=== PATIENT | female | born 2000 | race Caucasian/White ===

== ENCOUNTER → 2020-02-08 | Outpatient (CLI) | payer MEDICAID ==
[2020-02-08 12:20] LABS: HEMATOCRIT 34 % (35-52); HEMOGLOBIN 11.9 G/DL (11.5-16.0); MEAN CORPUSCULAR HEMOGLOBIN 31 PG (25-34); MEAN CORPUSCULAR HGB CONC 35 G/DL (32-36); MEAN CORPUSCULAR VOLUME 89 FL (80-99); MEAN PLATELET VOLUME 10.5 FL (7.4-10.4); NEUTROPHILS % (AUTO) 76 % (42-75); PLATELET COUNT 234 10^3/uL (130-400); WHITE BLOOD COUNT 10.4 10^3/uL (4.3-11.0)
[2020-02-08 12:21] LABS: BASOPHILS % (AUTO) 0 % (0-10); EOSINOPHILS % (AUTO) 0 % (0-10); LYMPHOCYTES % (AUTO) 19 % (12-44); MONOCYTES # (AUTO) 0.5 X 10^3 (0.0-1.0); MONOCYTES % (AUTO) 5 % (0-12); NEUTROPHILS # (AUTO) 7.9 X 10^3 (1.8-7.8)
== END ==
LOC: LAB FS 11:38
PROVIDERS: ATTEND Family Medicine
DX: Z34.01 Encounter for supervision of normal first pregnancy, first trimester (principal); Z34.00 Encounter for supervision of normal first pregnancy, unspecified trimester
CPT/HCPCS: 36415; 80055; 84443; 86703; 86762; 87088

== ENCOUNTER → 2020-02-29 | Outpatient (CLI) | payer MEDICAID | LOC: LAB FS 10:51 | PROVIDERS: ATTEND Family Medicine | DX: O03.9 Complete or unspecified spontaneous abortion without complication (principal) | CPT/HCPCS: 36415; 84702 ==

== ENCOUNTER → 2020-03-07 | Outpatient (CLI) | payer MEDICAID | LOC: LAB FS 10:11 | PROVIDERS: ATTEND Family Medicine | DX: O03.9 Complete or unspecified spontaneous abortion without complication (principal) | CPT/HCPCS: 36415; 84702 ==

== ENCOUNTER → 2020-08-19 | Outpatient (CLI) | payer MEDICAID | LOC: FSOP 15:06 | PROVIDERS: ATTEND Family Medicine | DX: Z34.01 Encounter for supervision of normal first pregnancy, first trimester (principal); Z3A.00 Weeks of gestation of pregnancy not specified | CPT/HCPCS: 36415; 87491; 87591 ==

== ENCOUNTER → 2020-10-17 | Outpatient (CLI) | payer MEDICAID ==
--- NOTE | 2020-10-17 14:12 | Diagnostic Imaging Report ---
INDICATION: survey TECHNIQUE: Multiple real-time grayscale images were obtained over the gravid uterus. COMPARISON: None FINDINGS: Gómez viable IUP is in cephalic position. The placenta is anterior with no abruption or previa. Cervix is measuring at about 2.6 cm. Amniotic fluid volume appeared within normal limits. The heart rate 144 bpm. No pathological finding at the anatomical survey is revealed however the lie results in suboptimal interrogation of the facial structures as well as ventricular outflow tracts. The biometrical measurements correlate with an average age of 20 weeks 5 days, sonographic date of delivery 03/01/2021, the LMP percentile is 46%. Biometrical measurements are as follows: Biparietal 5.00 cm, age 21 weeks 1 days. Head circumference 17.97 cm, age 20 weeks 3 days. Abdominal circumference 15.25 cm, age 20 weeks 4 days. Femur length 3.31 cm, age 20 weeks 3 days. Sonographic estimate age: 20 weeks 5 days. Sonographic estimated date of delivery: 03/01/2021. Estimated Weight: 354 gm (+/- 52 gm). LMP percentile: 46%. heart rate: 144 beats per minute. number: 1 of 1. IMPRESSION: Gómez viable IUP with no pathological finding demonstrated measuring 20 week 5 days. The nondilated cervix measures such short at 2.6 cm but this measurement may be artifactually diminished. Dictated by: Dictated on workstation # [id number]
== END ==
LOC: RAD FS 12:50
PROVIDERS: ATTEND Family Medicine
DX: Z34.02 Encounter for supervision of normal first pregnancy, second trimester (principal); Z3A.20 20 weeks gestation of pregnancy
CPT/HCPCS: 76805

== ENCOUNTER 2020-10-30 12:09 | Outpatient (CLI) | payer MEDICAID ==
[~2020-10-30] VITALS: Ht 154 cm; Wt 59.0 kg
[2020-10-30 12:26] VITALS: BP 102/59
[2020-10-30 12:29] VITALS: BP 102/59
[2020-10-30] MEDS ORDERED: FLUO10CA29 PO (12:30)
[2020-10-30] MEDS ORDERED: PREN-37 PO (12:30)
[2020-10-30 13:05] VITALS: BP 102/59
--- NOTE | 2020-10-31 07:59 | Physician Query-Final Dx ---
REY OGLESBY 10/31/20 0759: Clinic Account Progress/Dx Physician Query: Please give diagnosis Please include # weeks gestation Date of Service Oct 30, 2020 at 12:09 ZAHRAA GUTIERREZ MD 10/31/20 0831: Clinic Account Progress/Dx DIAGNOSIS: Diagnosis 22 weeks gestation with false labor REY OGLESBY Oct 31, 2020 07:59 ZAHRAA GUTIERREZ MD Oct 31, 2020 08:31
== END 2020-10-30 13:05 | disposition home or self-care (01) ==
LOC: WSo 12:09 → LDRP 12:10 → WSo 13:05
PROVIDERS: ATTEND Obstetrics & Gynecology
DX: O47.02 False labor before 37 completed weeks of gestation, second trimester (principal); O26.892 Other specified pregnancy related conditions, second trimester; R10.9 Unspecified abdominal pain; Z3A.22 22 weeks gestation of pregnancy
CPT/HCPCS: 99213

== ENCOUNTER → 2020-11-05 | Outpatient (CLI) | payer MEDICAID ==
[~2020-11-05] MED LIST: FLUO10CA29 PO; PREN-37 PO
== END ==
LOC: LABNPT 14:51
PROVIDERS: ATTEND Family Medicine
DX: N89.8 Other specified noninflammatory disorders of vagina (principal); R39.89 Other symptoms and signs involving the genitourinary system
CPT/HCPCS: 87088; 87210

== ENCOUNTER → 2020-11-07 | Outpatient (CLI) | payer MEDICAID ==
--- NOTE | 2020-11-07 12:33 | Diagnostic Imaging Report ---
INDICATION: Follow-up cervical length TECHNIQUE: Multiple real-time grayscale images were obtained over the gravid uterus. COMPARISON: ultrasound from 10/17/2020 FINDINGS: The cervix was measured on transvaginal imaging and measures 4.7 cm. Fetus is in cephalic presentation. The placenta is located along the anterior uterus, and has normal echogenicity and thickness for gestational age. There are no calcifications within the placenta. The amount of amniotic fluid appears appropriate. Limited anatomy assessment was performed and the following structures are visualized and normal: Four-chamber heart, left ventricular outflow tract, right ventricular outflow tract and profile. heart rate: 155 beats per minute. number: 1 of 1. IMPRESSION: 1. Cervix measures 4.7 cm in length by transvaginal imaging. Trace fluid within the endocervical canal with the internal cervical os appearing closed. 2. The few anatomy structures not seen on prior anatomy survey are seen on today's exam and normal. Dictated by: Dictated on workstation # [id number]
== END ==
LOC: RAD FS 08:52
PROVIDERS: ATTEND Family Medicine
DX: O26.879 Cervical shortening, unspecified trimester (principal); Z3A.00 Weeks of gestation of pregnancy not specified
CPT/HCPCS: 76816

== ENCOUNTER → 2020-12-17 | Outpatient (CLI) | payer MEDICAID ==
[2020-12-17 11:18] LABS: HEMATOCRIT 32 % (35-52); HEMOGLOBIN 10.9 g/dL (11.5-16.0); MEAN CORPUSCULAR HEMOGLOBIN 33 pg (25-34); MEAN CORPUSCULAR HGB CONC 34 g/dL (32-36); MEAN CORPUSCULAR VOLUME 97 fL (80-99); PLATELET COUNT 265 10^3/uL (130-400)
[2020-12-17 11:19] LABS: MEAN PLATELET VOLUME 10.4 fL (9.0-12.2)
== END ==
LOC: LAB FS 10:03
PROVIDERS: ATTEND Registered Nurse Emergency
DX: Z34.01 Encounter for supervision of normal first pregnancy, first trimester (principal)
CPT/HCPCS: 36415; 82950; 85027; 86780; 86850

== ENCOUNTER 2021-02-07 13:00 | Outpatient (CLI) | payer MEDICAID ==
[~2021-02-07] VITALS: Ht 154.9 cm; Wt 67.7 kg
[2021-02-07 13:06] VITALS: BP 109/60
[2021-02-07 13:07] VITALS: BP 109/60
[2021-02-07] MEDS ORDERED: AMPICILLIN FOR IV USE 2,000 MG in NS (IVPB) 50 ML IV ONE (13:49)
[2021-02-07] MEDS ORDERED: D5 LR IV SOLUTION 1,000 ML IV ONE ×2 (14:00)
[2021-02-07] MEDS ORDERED: AMPICILLIN 2,000 MG/14.8 ML (IV USE) ONE (14:10)
[2021-02-07] MEDS ORDERED: WATER (STERILE) FOR INJECTION 20 ML ONE (14:10)
[2021-02-07 16:50] VITALS: BP 109/60
[2021-02-07] MEDS ORDERED: AMPICILLIN FOR IV USE 1,000 MG in NS (IVPB) 50 ML IV SCH (18:00)
[2021-02-07] MEDS ORDERED: AMPICILLIN 1,000 MG/NS 50 ML IVPB IV SCH ×2 (18:00)
--- NOTE | 2021-02-10 08:15 | Physician Query-Final Dx ---
Clinic Account Progress/Dx Physician Query: Please give diagnosis Please include # weeks gestation Date of Service Feb 07, 2021 at 13:00 MENDEL,MarFeb 10, 2021 08:15
== END 2021-02-07 16:50 | disposition home or self-care (01) ==
LOC: WSo 13:00 → LDRP 13:00 → WSo 16:50
PROVIDERS: ATTEND Obstetrics & Gynecology
DX: O62.9 Abnormality of forces of labor, unspecified (principal); Z3A.00 Weeks of gestation of pregnancy not specified

== ENCOUNTER 2021-02-14 21:35 | Observation (INO) | payer MEDICAID ==
[~2021-02-14] VITALS: Ht 154.9 cm; Wt 70.4 kg
[2021-02-14 22:03] VITALS: BP 127/59
[2021-02-14 22:06] LABS: BILIRUBIN,URINE NEGATIVE (NEGATIVE); CLARITY,URINE CLEAR; COLOR,URINE YELLOW; GLUCOSE, URINE (UA) NEGATIVE (NEGATIVE); KETONES,URINE NEGATIVE (NEGATIVE); LEUKOCYTE ESTERASE ,URINE 1+ (NEGATIVE); NITRITE,URINE NEGATIVE (NEGATIVE); PROTEIN,URINE NEGATIVE (NEGATIVE)
[2021-02-14] MEDS ORDERED: ACETAMINOPHEN 500 MG TAB (TYLENOL) PO ONE (22:15)
[2021-02-14] MEDS ORDERED: CYCLOBENZAPRINE 10 MG (FLEXERIL) TAB PO SCH (22:15)
[2021-02-14] MEDS ORDERED: LACTATED RINGERS 1,000 ML IV SCH (22:15)
[2021-02-14] MEDS ORDERED: morphine INJ 4 MG/ML 1 ML (VIAL/SYRINGE) IVP ONE (22:15)
[2021-02-14 22:16] VITALS: BP 127/59
[2021-02-14 22:20] VITALS: BP 127/59
[2021-02-14] MEDS ORDERED: morphine INJ 10 MG/ML 1ML (SYR OR VIAL) ONE (22:25)
[2021-02-14] MEDS ORDERED: LACTATED RINGERS 1,000 ML IV ONE (22:26)
[2021-02-14] MEDS ORDERED: ACETAMINOPHEN 500 MG TAB (TYLENOL) ONE (22:26)
[2021-02-14] MEDS ORDERED: CYCLOBENZAPRINE 10 MG (FLEXERIL) TAB ONE (22:26)
[2021-02-14 22:42] LABS: AMORPHOUS SEDIMENT,UR RARE AMOR URATES /LPF; BACTERIA,URINE FEW /HPF; RBC,URINE RARE /HPF; SQUAMOUS EPITHELIAL CELL,UR 0-2 /HPF
[2021-02-14] MEDS ORDERED: cefTRIAXone 1,000 MG VIAL ONE (22:54)
[2021-02-14] MEDS ORDERED: cefTRIAXone 1 GM PRE-MIX 50 ML IV ONE (23:00)
[2021-02-14] MEDS ORDERED: NS (IVPB) 50 ML ONE (23:05)
[2021-02-14] MEDS ORDERED: D5 LR IV SOLUTION 1,000 ML IV ONE (23:48)
[2021-02-14] MEDS: D5 LR IV SOLUTION 1,000 ML IV SCH (23:49)
[2021-02-15] VITALS: BP 118/62
[2021-02-15] MEDS ORDERED: BUTORPHANOL INJ 2 MG/ML (STADOL) VIAL IV ONE ×4 (02:15→11:30)
[2021-02-15] MEDS ORDERED: BUTORPHANOL INJ 2 MG/ML (STADOL) VIAL ONE ×3 (02:17→09:27)
[2021-02-15 02:25] VITALS: BP 98/52
[2021-02-15 04:37] VITALS: BP 127/60
[2021-02-15 07:36] VITALS: BP 102/53
[2021-02-15] MEDS: D5 LR IV SOLUTION 1,000 ML IV SCH (07:38)
--- NOTE | 2021-02-15 10:47 | History & Physical-OB ---
OB - Chief Complaint & HPI Date/Time Date of Admission: Date of Admission: Feb 15, 2021 at 08:00 Date seen by a Provider: Feb 15, 2021 Time Seen by a Provider: 10:44 Chief Complaint/History OB-Reason for Admission/Chief: Contractions Hx : 2 Hx Para: 0 Expected Date of Delivery: Mar 03, 2021 Gestational Age in Weeks: 37 Gestational Age in Days: 4 Other reason for admission: CC: Painful Contractions Chelsea Villafuerte is a 21 yo who presents for contractions that have become more painful and frequent. She denies any vaginal bleeding or LOF. She is feeling good movements. She denies any AVITIA, CP, SOB, palpitations, visual disturbances. care is with Dr. Alvarado, and her has been uncomplicated Admission Nurse Assessment Rev: Yes History of Labs GBS negative Allergies and Home Medications Allergies Coded Allergies: No Known Drug Allergies (Unverified , 02/07/21) Patient Home Medication List Home Medication List Reviewed: Yes Acetaminophen (Tylenol) 325 Mg Capsule, 1,000 MG PO Q6H PRN for PAIN-MILD (1-4) Prescribed by: VIKY KAISER on 02/15/21 1523 Cephalexin (Cephalexin) 250 Mg Capsule, 500 MG PO QID Prescribed by: VIKY KAISER on 02/15/21 1522 Cyclobenzaprine HCl (Cyclobenzaprine HCl) 10 Mg Tablet, 10 MG PO Q8H PRN for PAIN-MODERATE (5-7) Prescribed by: VIKY KAISER on 02/15/21 1522 Fluoxetine HCl (Prozac) 10 Mg Capsule, 10 MG PO DAILY, (Reported) Entered as Reported by: CIERA COREAS on 10/30/20 1230 Last Action: Reviewed Vit/Iron Fumarate/FA ( Tablet) 1 Each Tablet, 1 EACH PO DAILY, (Reported) Entered as Reported by: CIERA COREAS on 10/30/20 1230 Last Action: Reviewed Zolpidem Tartrate (Ambien) 5 Mg Tablet, 5 MG PO HS PRN for INSOMNIA Prescribed by: VIKY KAISER on 02/15/21 1524 OB - History Hx of Present Care: Yes Ultrasounds: Normal mid trimester US Obstetrical Complications: None Medical Complications: None, Psychiatric Information Induced Hypertension: No Maternal Gestational Diabetes: No Hemorrhage: No Obstetrical History Hx : 2 Hx Para: 0 Hx Total # of Abortions (Spona: 1 Patient Past Medical History Anxiety Social History/Family History Alcohol Use: Denies Use Recreational Drug Use: No 2nd Hand Smoke Exposure: No OB - Admission Exam Physical Exam Vitals: Vital Signs VS - Last 72 Hours, by Label 02/14/21 02/14/21 02/14/21 02/15/21 22:03 22:16 22:20 00:00 Temp 37.2 37.2 37.2 36.6 Pulse 105 105 105 96 Resp 20 20 20 20 B/P (MAP) 127/59 (81) 118/62 (80) Pulse Ox 99 99 99 O2 Delivery Room Air Room Air Room Air 02/15/21 02/15/21 02/15/21 02/15/21 02:25 04:37 07:36 11:37 Temp 36.9 36.5 36.8 37.1 Pulse 78 75 115 Resp 20 20 20 B/P (MAP) 98/52 (67) 127/60 (82) 102/53 (69) Pulse Ox 99 O2 Delivery Room Air Room Air Room Air 02/15/21 13:37 Temp 37.1 Pulse 97 Resp 20 B/P (MAP) 104/61 (75) Pulse Ox 98 O2 Delivery Room Air HEENT: EOMI Heart: Other (normal rate and peripheral perfusion) Abdomen: Other (No CVA tenderness) Extremities: Normal Cervical Dilatation: 3cm Effacement: 75% Station: -1 Membranes: Intact Heart Rate: 130's Accelerations: Accelerations Present Decelerations: No Decelerations Short Term Variability: Present Drip Molder Variability: Average (6-25) Contractions on Admission: 6-10 Minutes Apart Gao Scoring Tool (Modified) Dilation (cm): 3-4cm (2) Effacement (%): 80-100% (3) Descent/Station: -1,0 (2) Labs Laboratory Tests Test 02/14/21 21:55 Range/Units Urine Color YELLOW Urine Clarity CLEAR Urine pH 6.0 5-9 Urine Specific [place] 1.010 L 1.016-1.022 Urine Protein NEGATIVE NEGATIVE Urine Glucose (UA) NEGATIVE NEGATIVE Urine Ketones NEGATIVE NEGATIVE Urine Nitrite NEGATIVE NEGATIVE Urine Bilirubin NEGATIVE NEGATIVE Urine Urobilinogen 1.0 < = 1.0 MG/DL Urine Leukocyte Esterase 1+ H NEGATIVE Urine RBC (Auto) TRACE-I H NEGATIVE Urine RBC RARE /HPF Urine WBC 5-10 H /HPF Urine Squamous Epithelial Cells 0-2 /HPF Urine Crystals PRESENT H /LPF Urine Amorphous Sediment RARE SHIRA URATES H /LPF Urine Bacteria FEW H /HPF Urine Casts NONE /LPF Urine Mucus NEGATIVE /LPF Urine Culture Indicated YES OB - Assessment/Plan/Diagnosis Assessment Assessment: observation, other Admission Dx Painful Contractions Admission Status: Observation Reason for Inpatient Admission: - Painful contractions requiring IV narcotics for management - Latent labor without cervical change Plan Plan: Expectant Management Other Plan - Patient admitted for extended observation for > 12 hours - Received IV morphine 5mg x1 and Stadol 1-2 mg x4 doses during admission - received IV fluids - No cervical change during period of admission - FHT reactive - DEBBIE wnl at 11.7cm - UA positive for WBCs and few bacteria. Empiric treatment for acute cystitis initiated. Received IV Rocephin x1 and transitioned to PO Keflex - Discussed supportive management at home with rest, warm bath, Tylenol. Prescription provided for Flexeril, Keflex, Ambien - Discharged home with return precautions provided Discharge Diagnosis Diagnosis: Contractions VIKY KAISER MD Feb 15, 2021 10:47
[2021-02-15 11:37] LABS: BASOPHILS % (AUTO) 0 % (0-10); EOSINOPHILS # (AUTO) 0.1 10^3/uL (0.0-0.3); EOSINOPHILS % (AUTO) 0 % (0-10); HEMATOCRIT 35 % (35-52); HEMOGLOBIN 11.9 g/dL (11.5-16.0); LYMPHOCYTES # (AUTO) 2.5 10^3/uL (1.0-4.0); LYMPHOCYTES % (AUTO) 14 % (12-44); MEAN CORPUSCULAR HEMOGLOBIN 32 pg (25-34); MEAN CORPUSCULAR HGB CONC 34 g/dL (32-36); MEAN CORPUSCULAR VOLUME 96 fL (80-99); MEAN PLATELET VOLUME 11.4 fL (9.0-12.2); MONOCYTES # (AUTO) 0.9 10^3/uL (0.0-1.0); MONOCYTES % (AUTO) 5 % (0-12); NEUTROPHILS # (AUTO) 14.2 10^3/uL (1.8-7.8); NEUTROPHILS % (AUTO) 80 % (42-75); PLATELET COUNT 298 10^3/uL (130-400); WHITE BLOOD COUNT 17.8 10^3/uL (4.3-11.0)
[2021-02-15 11:55] LABS: BAND NEUTROPHILS 3 %; NEUTROPHILS % (MANUAL) 75 %
[2021-02-15 11:56] LABS: EOSINOPHILS % (MANUAL) 1 %; LYMPHOCYTES % (MANUAL) 15 %; MONOCYTES % (MANUAL) 4 %; RBC MORPH NORMAL; REACTIVE LYMPHOCYTES 2 %; TOXIC GRANULATION/VACUOLAZATIO 1+
[2021-02-15] MEDS ORDERED: CEPHALEXIN 250 MG (KEFLEX) CAP PO SCH (13:00)
[2021-02-15 13:37] VITALS: BP 104/61
[2021-02-15] MEDS ORDERED: CEPH250C PO (15:22)
[2021-02-15] MEDS ORDERED: CYCL10TA9 PO (15:22)
[2021-02-15] MEDS ORDERED: ACET325C7 PO (15:23)
[2021-02-15] MEDS ORDERED: ZOLP5TAB PO (15:23)
--- NOTE | 2021-02-15 15:28 | Discharge Inst-Simple/Standard ---
Discharge Inst-Standard Reconcile Patient Problems Problems Reviewed?: Yes Discharge Medications New, Converted or Re-Newed RX: Transmitted to Pharmacy Patient Instructions/Follow Up Plan of Care/Instructions/FU: Return for worsening and more frequent contractions, vaginal bleeding, loss of fluid per vagina, fever equal to or greater than 100.4, decreased movements, or other concerns Activity as Tolerated: Yes Discharge Diet: No Restrictions Return to The Hospital For: Worsening and more frequent contractions, vaginal bleeding, loss of fluid per vagina, fever equal to or greater than 100.4, decreased movements, or other concerns VIKY KAISER MD Feb 15, 2021 15:28
--- NOTE | 2021-02-15 20:15 | Short Stay Summary ---
Discharge Summary Hospital Course Was the Problem List Reviewed?: Yes Final Diagnosis: Latent Labor without cervical change Hospital Course Date of Admission: Feb 15, 2021 at 08:00 Admission Diagnosis : Family Physician/Provider: Elva Medina MD Date of Discharge: 02/15/21 Discharge Diagnosis: latent labor Hospital Course: Patient is a 21 yo who presented for painful contractions. On presentation, FHR was reactive. She was noted to have q3-8 minute contractions on Tocodynamometer. She received doses of IV morphine, IV stadol with minimal improvement in her pain. UA was notable for WBCs and a few bacteria and empiric abx treatment for acute cystitis was initiated. She received IV Rocephin, and was transitioned to PO Keflex. She received IV fluids. FHR remained reactive throughout period of observation in the hospital. DEBBIE was obtained and was 11.7cm. Patient was discharged home in stable medical condition given likely latent labor without cervical change and reassuring FHT pattern. Return precautions were provided Labs and Pending Lab Test: Laboratory Tests 02/14/21 21:55: Urine Color YELLOW, Urine Clarity CLEAR, Urine pH 6.0, Urine Specific [place] 1.010L, Urine Protein NEGATIVE, Urine Glucose (UA) NEGATIVE, Urine Ketones NEGATIVE, Urine Nitrite NEGATIVE, Urine Bilirubin NEGATIVE, Urine Urobilinogen 1.0, Urine Leukocyte Esterase 1+H, Urine RBC (Auto) TRACE-IH, Urine RBC RARE, Urine WBC 5-10H, Urine Squamous Epithelial Cells 0-2, Urine Crystals PRESENTH, Urine Amorphous Sediment RARE SHIRA URATESH, Urine Bacteria FEWH, Urine Casts NONE, Urine Mucus NEGATIVE, Urine Culture Indicated YES 02/14/21 22:35: White Blood Count 17.8H, Red Blood Count 3.69L, Hemoglobin 11.9, Hematocrit 35, Mean Corpuscular Volume 96, Mean Corpuscular Hemoglobin 32, Mean Corpuscular Hemoglobin Concent 34, Red Cell Distribution Width 12.0, Platelet Count 298, Mean Platelet Volume 11.4, Immature Granulocyte % (Auto) 1, Neutrophils (%) (Auto) 80H, Lymphocytes (%) (Auto) 14, Monocytes (%) (Auto) 5, Eosinophils (%) (Auto) 0, Basophils (%) (Auto) 0, Neutrophils # (Auto) 14.2H, Lymphocytes # (Auto) 2.5, Monocytes # (Auto) 0.9, Eosinophils # (Auto) 0.1, Basophils # (Auto) 0.0, Immature Granulocyte # (Auto) 0.1, Neutrophils % (Manual) 75, Lymphocytes % (Manual) 15, Monocytes % (Manual) 4, Eosinophils % (Manual) 1, Band Neutrophils 3, Reactive Lymphocytes 2, Toxic Granulation 1+, Blood Morphology Comment NORMAL, Syphilis Serology [Pending] Home Meds Active Tylenol (Acetaminophen) 325 Mg Capsule 1,000 Mg PO Q6H PRN 7 Days Ambien (Zolpidem Tartrate) 5 Mg Tablet 5 Mg PO HS PRN 7 Days Cyclobenzaprine HCl 10 Mg Tablet 10 Mg PO Q8H PRN 7 Days Cephalexin 250 Mg Capsule 500 Mg PO QID 7 Days Reported Prozac (Fluoxetine HCl) 10 Mg Capsule 10 Mg PO DAILY Tablet ( Vit/Iron Fumarate/FA) 1 Each Tablet 1 Each PO DAILY Assessment/Pt Instructions 21 yo with IUP at 37w5d in latent labor. No cervical change for >15 hour period of observation in triage. FHR reactive. Discharge Instructions Discharge Diet: No Restrictions Activity as Tolerated: Yes Discharge Physical Examination General Appearance: Alert, Oriented X3, Cooperative HEENT: Atraumatic, EOMI Respiratory: Other (symmetrich chest rise, normal effort) Cardiovascular: Regular Rate, Other (normal peripheral perfusion) Abdominal: No Tenderness Extremities: No Edema, No Tenderness/Swelling Skin: No Rashes, No Breakdown Neuro: Normal Gait, Normal Speech, Normal Tone, Sensation Intact Psych/Mental Status: Mental Status NL, Mood NL Allergies: Coded Allergies: No Known Drug Allergies (Unverified , 02/07/21) Discharge Summary Date of Admission Feb 15, 2021 at 08:00 Date of Discharge Feb 15, 2021 at 16:00 Discharge Date: Feb 15, 2021 Consults/Procedures Consulations None Discharge Diagnosis Latent Labor without cervical change VIKY KAISER MD Feb 15, 2021 20:03
== END 2021-02-15 15:12 | disposition home or self-care (01) ==
LOC: WSo 21:35 → LDRP 21:35 → UNDOADMOB 02-15 08:00 → WSo 02-15 08:00 → LDRP 02-15 08:00 → UNDODISOB 02-15 16:00 → EDSTATUS 02-18 17:58
PROVIDERS: ADMIT Obstetrics & Gynecology; ATTEND Obstetrics & Gynecology
DX: O47.1 False labor at or after 37 completed weeks of gestation (principal); Z3A.37 37 weeks gestation of pregnancy; Z79.2 Long term (current) use of antibiotics; Z79.899 Other long term (current) drug therapy
CPT/HCPCS: 36415; 81000; 85007; 85027; 86780; 86850; 86900; 86901; 87088; 96361; 96374; 96375; 96376; G0378

== ENCOUNTER 2021-02-15 19:25 | Inpatient (IN) | payer MEDICAID ==
[2021-02-14 19:40] VITALS: BP 105/70
[~2021-02-15] VITALS: Ht 154.9 cm; Wt 69.0 kg
[2021-02-15] VITALS (23 sets, daily range): BP systolic 96–126; BP diastolic 51–92
[~2021-02-15 19:25] MED LIST changes: +ACET325C7 PO; +CEPH250C PO; +CYCL10TA25 PO; +ZOLP5TAB PO
[2021-02-15] MEDS ORDERED: D5 LR IV SOLUTION 1,000 ML IV ONE (19:56)
[2021-02-15] MEDS ORDERED: fentaNYL 2 mcg/ml BUPIVA 0.125 0 ML ONE (19:56)
[2021-02-15] MEDS ORDERED: MINERAL OIL CONCENTRATE 99.9% 15 ML UDC TOP PRN (20:15)
[2021-02-15] MEDS: D5 LR IV SOLUTION 1,000 ML IV SCH ×2 (20:15→20:37)
[2021-02-15] MEDS ORDERED: fentaNYL INJ 250 MCG/5 ML AMP ONE (20:25)
[2021-02-15] MEDS ORDERED: fentaNYL INJ 250 MCG/5 ML AMP IJ ONE (20:28)
[2021-02-15] MEDS ORDERED: ONDANSETRON 4 MG/2 ML (SDV) Z0FRAN IV PRN ×2 (20:30→21:00)
[2021-02-15] MEDS ORDERED: METOCLOPRAMIDE INJ 10 MG/2 ML (REGLAN) IV PRN ×2 (20:30→21:00)
[2021-02-15] MEDS ORDERED: diphenhydrAMINE 50 MG/ML INJ (BENADRYL) IV PRN (20:30)
[2021-02-15] MEDS ORDERED: NALOXONE 0.4 MG/ML 1 ML (NARCAN) VIAL IM PRN (20:30)
[2021-02-15] MEDS ORDERED: LACTATED RINGERS 1,000 ML IV ONE ×2 (20:30→21:00)
[2021-02-15] MEDS ORDERED: NALOXONE 0.4 MG/ML 1 ML (NARCAN) VIAL IV PRN ×3 (20:30→21:00)
--- NOTE | 2021-02-15 20:35 | History & Physical-OB ---
OB - Chief Complaint & HPI Date/Time Date of Admission: Date of Admission: Feb 15, 2021 at 19:25 Date seen by a Provider: Feb 15, 2021 Time Seen by a Provider: 19:30 Chief Complaint/History OB-Reason for Admission/Chief: Onset of Labor Hx : 2 Hx Para: 0 Expected Date of Delivery: Mar 03, 2021 Gestational Age in Weeks: 37 Gestational Age in Days: 5 History of Labs Rh negative GBS negative Rubella Immune Syphilis Ab non-reactive 1hr GCt wnl (110) HIV non-reactive Allergies and Home Medications Allergies Coded Allergies: No Known Drug Allergies (Unverified , 02/07/21) Patient Home Medication List Home Medication List Reviewed: Yes Acetaminophen (Tylenol) 325 Mg Capsule, 1,000 MG PO Q6H PRN for PAIN-MILD (1-4) Prescribed by: VIKY KAISER on 02/15/21 1523 Cephalexin (Cephalexin) 250 Mg Capsule, 500 MG PO QID Prescribed by: VIKY KAISER on 02/15/21 1522 Cyclobenzaprine HCl (Cyclobenzaprine HCl) 10 Mg Tablet, 10 MG PO Q8H PRN for PAIN-MODERATE (5-7) Prescribed by: VIKY KAISER on 02/15/21 1522 Fluoxetine HCl (Prozac) 10 Mg Capsule, 10 MG PO DAILY, (Reported) Entered as Reported by: CIERA COREAS on 10/30/20 1230 Vit/Iron Fumarate/FA ( Tablet) 1 Each Tablet, 1 EACH PO DAILY, (Reported) Entered as Reported by: CIERA COREAS on 10/30/20 1230 Zolpidem Tartrate (Ambien) 5 Mg Tablet, 5 MG PO HS PRN for INSOMNIA Prescribed by: VIKY KAISER on 02/15/21 1524 OB - History Hx of Present Care: Yes Ultrasounds: Normal mid trimester US Obstetrical Complications: None Medical Complications: None, Psychiatric (Hx of anxiety) Information Induced Hypertension: No Maternal Gestational Diabetes: No Hemorrhage: No Obstetrical History Hx : 2 Hx Para: 0 Hx # Term Pregnancies: 0 Hx # Pregnancies: 0 Number of Living Children: 0 Hx Total # of Abortions (Spona: 1 Patient Past Medical History Hx of anxiety Social History/Family History Alcohol Use: Denies Use Recreational Drug Use: No Smoking Cessation: Former smoker 2nd Hand Smoke Exposure: No OB - Admission Exam Physical Exam Heart: Other (normal heart rate and peripheral perfusion) Lungs: Equal (symmetric chest rise, normal effort) Abdomen: Non tender Extremities: Normal Cervical Dilatation: 8cm Effacement: 75% Station: Other (bulging amniotic sac) Membranes: Intact Heart Rate: 140's Accelerations: Accelerations Present Decelerations: No Decelerations Short Term Variability: Present Ways Operator Variability: Average (6-25) Contractions on Admission: < 5 Minutes Apart Date/Time Contractions Began;: 02/14/21 Frequency of Contractions: q 3 min OB - Assessment/Plan/Diagnosis Assessment Assessment: active labor Admission Dx Term Labor Admission Status: Inpatient Order (span 2 midnights) Reason for Inpatient Admission: Term Labor Plan Plan: Expectant Management Problems: (1) Active labor at term Assessment & Plan: Expectant management IV fluids NPO except ice chips cEFM/Trumann epidural on patient request VIKY KAISER MD Feb 15, 2021 20:35
[2021-02-15] MEDS ORDERED: fentaNYL INJ 100 MCG/2 ML AMP INJ ONE (21:00)
[2021-02-15] MEDS ORDERED: diphenhydrAMINE 50 MG/ML INJ (BENADRYL) IJ PRN (21:00)
--- NOTE | 2021-02-15 21:00 | Labor Progress Note ---
Labor Progress Note Labor Progress Note Date Seen by Provider: Feb 15, 2021 Time Seen by Provider: 20:56 Subjective: Pt denies complaints. Objective: (Can we insert 24 hour vitals here?) Cervical exam: [/-1] Consistency: [soft] Position: [anterior] Presentation: [cephalic] heart tones: 145beats per minute, moderate variability, reactive Tocometer: ctx q 3 min Assessment/Plan: Chelsea Villafuerte is a (21 /Para 2 / 0,Gestational Age (wks) here for labor. CEFM/TOCO Anesthesia: s/p spinal anesthesia AROM performed with clear fluid return Anticipate vaginal delivery. VIKY KAISER MD Feb 15, 2021 21:00
[2021-02-15] MEDS: fentaNYL 2 mcg/ml BUPIVA 0.125 100 ML IV SCH (22:30)
[2021-02-16] VITALS (37 sets, daily range): BP systolic 97–142; BP diastolic 51–79
[2021-02-16] MEDS ORDERED: OXYTOCIN PRE-MIX DRIP 500 ML IV ONE (01:16)
[2021-02-16] MEDS: D5 LR IV SOLUTION 1,000 ML IV SCH (01:30)
--- NOTE | 2021-02-16 01:42 | Labor Progress Note ---
Labor Progress Note Labor Progress Note Date Seen by Provider: Feb 16, 2021 Time Seen by Provider: 01:28 Subjective: Pt denies complaints. Objective: Vital Signs 02/15/21 02/15/21 20:36 20:55 Temp 37.19817 Pulse 87 Resp 16 B/P (MAP) 96/51 (66) Pulse Ox 97 O2 Delivery Room Air Cervical exam: 9+/90/0 Presentation: cephalic heart tones: 150 beats per minute, mod negrita variability, + accels. occassional variable decels Tocometer: ctx q 3 min Assessment/Plan: Chelsea Villafuerte is a (21 /Para 2 / 0,Gestational Age (wks)37 here for labor. CEFM/TOCO Pitocin briefly started for augmentation but discontinued due to sustained FHR deceleration to 60s x3 min resolved with discontinuation of pitocin and repositioning Anesthesia: s/p spinal. Now has epidural anesthesia placed Continue expectant management Anticipate vaginal delivery. Vitals - Labs Vital Signs - I&O Vital Signs Date Time Temp Pulse Resp B/P (MAP) Pulse Ox O2 Delivery O2 Flow Rate FiO2 02/15/21 20:55 87 16 96/51 (66) 97 Room Air 02/15/21 20:45 77 18 101/53 (69) 96 Room Air 02/15/21 20:40 84 16 100/52 (68) 99 Room Air 02/15/21 20:36 37.09745 02/15/21 20:10 78 20 126/62 (83) 100 Room Air 02/15/21 19:55 85 20 105/70 (82) 99 Room Air 02/15/21 19:40 37.3 85 20 105/70 (82) 99 Room Air VIKY KAISER MD Feb 16, 2021 01:42
[2021-02-16] MEDS: fentaNYL 2 mcg/ml BUPIVA 0.125 100 ML IV SCH (06:35)
[2021-02-16] MEDS ORDERED: MEPIVACAINE (CARBOCAINE) 2% 50 ML VIAL ONE (07:04)
[2021-02-16] MEDS ORDERED: NALOXONE 0.4 MG/ML 1 ML (NARCAN) VIAL IV PRN (07:30)
[2021-02-16] MEDS ORDERED: CALCIUM CARBONATE 500 MG (TUMS) TAB.CHEW PO PRN (07:30)
[2021-02-16] MEDS ORDERED: ONDANSETRON 4 MG (ZOFRAN) ORAL DISSOLVE TAB PO PRN (07:30)
[2021-02-16] MEDS ORDERED: DIBUCAINE 1% OINTMENT 30 GM TUBE TOP PRN (07:30)
[2021-02-16] MEDS ORDERED: WITCH HAZEL(TUCKS) 40 EA JAR TOP PRN (07:30)
[2021-02-16] MEDS ORDERED: MEASLES,MUMPS,RUBELLA 1 EA INJ SQ ONE (07:30)
--- NOTE | 2021-02-16 07:40 | OB Labor & Delivery Record ---
Vag Delivery Note Vag Delivery Note Date of Delivery: 02/16/21 Preoperative Diagnosis: Chelsea Villafuerte is a (21 /Para 2 / 0,Gestational Age (wks)37w5d with term spontaneous labor Postoperative Diagnosis: Same Surgeon: VIKY KAISER Bottle Washing Machine Operator: none Anesthesia: Epidural Delivery Type: Vacuum assisted vaginal delivery Findings: living femal infant, apgars 8/9 at 1 and 5 min respectively, weight 3190gm Lacerations: first degree perineal, left periurethral Intact placenta with 3 vessel cord. No nuchal cord, body cord or shoulder dystocia Cytotec 800 mcg placed for hemorrhage prophylaxis Estimated Blood Loss: 300ml Complications: None Condition: Stable Description of Procedure: The patient is a 21 year old female who presented with contractions. On presentation, cervical exam was 8/90/BBW. She was admitted for labor and informed consent was obtained. Her labor course was remarkable for AROM with clear fluid noted. She was managed expectantly. Pitocin was briefly administered, but was soon discontinued due to maternal tacchysystole and associated heart rate decelerations. She progressed to complete dilatation and began to push. She was then set up for delivery. She was able to push to +2 station. FHT was notable for recurrent deep FHR decelerations with contractions. At this point, recommendation was made to the patient for a vacuum assisted vaginal delivery to expedite delivery. Risks of vacuum-assisted delivery were discussed including but not limited to damage to baby including (intracranial) hemorrhage, damage to mother, failure of vacuum delivery. Patient verbalized understanding, and desired to proceed. position was again confirmed, and a [place] Vacuum was applied to the flexion point (3 cm anterior to the posterior fontanelle over the sagittal suture) of the head to assist in expedited delivery of given category II FHR tracing. Vacuum was pumped to the green zone, and with gentle traction, the i nfant was delivered atraumatically with 2 pulls over one contraction, and no pop-offs. Vacuum was then removed with delivery of the head. The infant's head was delivered atraumatically in the HINA position. The shoulders and remainder of the 's body were then delivered without difficulty. Upon delivery, the cord was doubly clamped and cut and the infant was placed on mother's chest. An intact placenta with 3-vessel cord delivered intact. Vigorous fundal massage was performed and the fundus was found to be firm. IV oxytocin was given. Examination of the vagina and perineum revealed a first degree perineal laceration repaired in the usual fashion with 3-0 vicryl suture. Following the repair, sponge, instrument and needle counts were correct. Mom and baby were both in stable condition in the labor suite. Vitals - Labs Vital Signs - I&O Vital Signs Date Time Temp Pulse Resp B/P (MAP) Pulse Ox O2 Delivery O2 Flow Rate FiO2 02/15/21 23:30 78 16 110/56 (74) 98 Room Air 02/15/21 23:15 75 16 121/56 (77) 97 Room Air 02/15/21 22:55 91 16 115/58 (77) 97 Room Air 02/15/21 22:50 70 18 109/51 (70) 97 Room Air 02/15/21 22:45 78 18 108/55 (72) 97 Room Air 02/15/21 22:40 91 16 115/58 (77) 97 Room Air 02/15/21 22:35 78 18 108/54 (72) 97 Room Air 02/15/21 22:30 74 18 107/52 (70) 97 Room Air 02/15/21 22:25 81 16 116/56 (76) Room Air 02/15/21 22:20 90 16 108/58 (75) 97 Room Air 02/15/21 22:15 94 16 107/59 (75) 97 Room Air 02/15/21 22:10 37.0 90 16 108/58 (75) Room Air 02/15/21 21:55 81 16 116/56 (76) Room Air 02/15/21 21:40 94 16 116/60 (78) Room Air 02/15/21 21:25 85 16 103/59 (74) Room Air 02/15/21 21:10 89 16 112/92 (99) 97 Room Air 02/15/21 20:55 87 16 96/51 (66) 97 Room Air 02/15/21 20:45 77 18 101/53 (69) 96 Room Air 02/15/21 20:40 84 16 100/52 (68) 99 Room Air 02/15/21 20:36 37.37367 02/15/21 20:10 78 20 126/62 (83) 100 Room Air 02/15/21 19:55 85 20 105/70 (82) 99 Room Air 02/15/21 19:40 37.3 85 20 105/70 (82) 99 Room Air VIKY KAISER MD Feb 16, 2021 07:40
[2021-02-16] MEDS: OXYTOCIN PRE-MIX DRIP 500 ML IV SCH (07:46)
[2021-02-16] MEDS ORDERED: FERROUS SULF 325 MG (IRON) TAB PO SCH (09:00)
[2021-02-16] MEDS: ACETAMINOPHEN 500 MG TAB (TYLENOL) PO PRN ×2 (14:32→22:50)
[2021-02-16] MEDS: IBUPROFEN 600 MG (MOTRIN) TAB PO SCH ×2 (14:32→19:57)
[2021-02-16] MEDS: BENZOCAINE/MENTHOL (DERMOPLAST) 56 ML CAN TP PRN (14:34)
[2021-02-16] MEDS: DOCUSATE SODIUM 100 MG (COLACE) CAP PO SCH ×2 (19:57→21:39)
[2021-02-17] MEDS: IBUPROFEN 600 MG (MOTRIN) TAB PO SCH ×2 (02:15→09:48)
[2021-02-17 04:38] VITALS: BP 107/57
[2021-02-17] MEDS: ACETAMINOPHEN 500 MG TAB (TYLENOL) PO PRN (05:49)
[2021-02-17] MEDS: BENZOCAINE/MENTHOL (DERMOPLAST) 56 ML CAN TP PRN (05:49)
[2021-02-17] MEDS: CATHETER FLUSH 10 ML SYR IV SCH ×3 (06:11→06:13)
[2021-02-17 06:24] LABS: BASOPHILS % (AUTO) 0 % (0-10); EOSINOPHILS # (AUTO) 0.1 10^3/uL (0.0-0.3); EOSINOPHILS % (AUTO) 1 % (0-10); HEMATOCRIT 27 % (35-52); HEMOGLOBIN 8.9 g/dL (11.5-16.0); LYMPHOCYTES # (AUTO) 3.2 10^3/uL (1.0-4.0); LYMPHOCYTES % (AUTO) 22 % (12-44); MEAN CORPUSCULAR HEMOGLOBIN 32 pg (25-34); MEAN CORPUSCULAR HGB CONC 33 g/dL (32-36); MEAN CORPUSCULAR VOLUME 97 fL (80-99); MEAN PLATELET VOLUME 11.4 fL (9.0-12.2); MONOCYTES # (AUTO) 0.9 10^3/uL (0.0-1.0); MONOCYTES % (AUTO) 6 % (0-12); NEUTROPHILS # (AUTO) 10.2 10^3/uL (1.8-7.8); NEUTROPHILS % (AUTO) 71 % (42-75); PLATELET COUNT 203 10^3/uL (130-400); WHITE BLOOD COUNT 14.4 10^3/uL (4.3-11.0)
[2021-02-17] MEDS ORDERED: PRENATAL VITAMIN 1 EA TAB PO SCH (07:00)
[2021-02-17] MEDS ORDERED: IBUP-844 PO ×2 (08:47→09:07)
--- NOTE | 2021-02-17 08:48 | Discharge Inst-Women's Service ---
Discharge Inst-Women's Serv Depart Medication/Instructions New, Converted or Re-Newed RX: Transmitted to Pharmacy Final Diagnosis 37 week gestation labor antepartum and acute blood loss anemia Problems Reviewed?: Yes Consults/Follow Up Additional Follow Up: Yes ([address] Medina) Activity Activity: Activity as Tolerated Driving Instructions: You May Drive NO SMOKING: NO SMOKING Nothing Inside Vagina: No Douching, No [place], No Tampons Diet Discharge Diet: No Restrictions Symptoms to Report to : Swelling Increased, Bleeding Excessive, Pain Increased, Fever Over 101 Degrees F, Vaginal Bleeding Increase, Cramps in Feet or Legs, Vaginal Discharge Foul For Any Problems or Questions: Contact Your Physician RUBY ORR DO Feb 17, 2021 08:48
[2021-02-17] MEDS ORDERED: DOCU100C37 PO (09:07)
[2021-02-17] MEDS ORDERED: ACET-93 PO (09:07)
[2021-02-17] MEDS ORDERED: FERR325T24 PO (09:07)
--- NOTE | 2021-02-17 09:09 | Postpartum Progress Note ---
Note Note Day # 1 Subjective: Patient is without complaints. Ambulating, voiding. Tolerating a regular diet without nausea or vomiting. Normal lochia. Pain is well controlled with oral pain medications. [] feeding. [] Objective: 02/16/21 02/17/21 23:40 04:38 Temp 36.8 36.8 Pulse 81 81 Resp 16 16 B/P (MAP) 107/57 (74) 107/57 (74) Pulse Ox 99 99 O2 Delivery Room Air Room Air Laboratory Tests Test 02/17/21 05:15 Range/Units White Blood Count 14.4 H 4.3-11.0 10^3/uL Red Blood Count 2.76 L 3.80-5.11 10^6/uL Hemoglobin 8.9 #L 11.5-16.0 g/dL Hematocrit 27 L 35-52 % Mean Corpuscular Volume 97 80-99 fL Mean Corpuscular Hemoglobin 32 25-34 pg Mean Corpuscular Hemoglobin Concent 33 32-36 g/dL Red Cell Distribution Width 12.3 10.0-14.5 % Platelet Count 203 130-400 10^3/uL Mean Platelet Volume 11.4 9.0-12.2 fL Immature Granulocyte % (Auto) 1 % Neutrophils (%) (Auto) 71 42-75 % Lymphocytes (%) (Auto) 22 12-44 % Monocytes (%) (Auto) 6 0-12 % Eosinophils (%) (Auto) 1 0-10 % Basophils (%) (Auto) 0 0-10 % Neutrophils # (Auto) 10.2 H 1.8-7.8 10^3/uL Lymphocytes # (Auto) 3.2 1.0-4.0 10^3/uL Monocytes # (Auto) 0.9 0.0-1.0 10^3/uL Eosinophils # (Auto) 0.1 0.0-0.3 10^3/uL Basophils # (Auto) 0.0 0.0-0.1 10^3/uL Immature Granulocyte # (Auto) 0.1 0.0-0.1 10^3/uL Physical Exam: General - Alert and oriented, no apparent distress Abdomen - Soft, appropriately tender to palpation, non-distended, fundus firm at umbilicus Extremities - no edema, negative Vinicio's bilaterally [] Assessment: [] post- day # [], status post [] vaginal delivery. Recovering well, hemodynamically stable [] Plan: Routine care. Encourage breast feeding. Encourage ambulation. Ferrous sulfate supplementation. Plan for discharge [] Vitals - Labs Vital Signs - I&O Vital Signs Date Time Temp Pulse Resp B/P (MAP) Pulse Ox O2 Delivery O2 Flow Rate FiO2 02/17/21 04:38 36.8 81 16 107/57 (74) 99 Room Air 02/16/21 23:40 36.8 81 16 107/57 (74) 99 Room Air 02/16/21 20:00 36.2 75 16 105/53 (70) 98 Room Air 02/16/21 14:34 36.4 80 18 105/53 (70) 99 Room Air I & O 02/17/21 07:00 Intake Total 500 ml Balance 500 ml Labs Laboratory Tests 02/17/21 05:15: White Blood Count 14.4H, Red Blood Count 2.76L, Hemoglobin 8.9#L, Hematocrit 27L , Mean Corpuscular Volume 97, Mean Corpuscular Hemoglobin 32, Mean Corpuscular Hemoglobin Concent 33, Red Cell Distribution Width 12.3, Platelet Count 203, Mean Platelet Volume 11.4, Immature Granulocyte % (Auto) 1, Neutrophils (%) (Auto) 71, Lymphocytes (%) (Auto) 22, Monocytes (%) (Auto) 6, Eosinophils (%) (Auto) 1, Basophils (%) (Auto) 0, Neutrophils # (Auto) 10.2H, Lymphocytes # (Auto) 3.2, Monocytes # (Auto) 0.9, Eosinophils # (Auto) 0.1, Basophils # (Auto) 0.0, Immature Granulocyte # (Auto) 0.1 RUBY ORR DO Feb 17, 2021 09:09
--- NOTE | 2021-02-17 09:32 | Anesthesia-Regional Post-Op ---
Regional Patient Condition Mental Status: Alert, Oriented x3 Circulation: Same as Pre-Op Headache: Absent Sensation: Full Recovery Motor Block: Absent Post Op Complications Complications None Follow Up Care/Instructions Patient Instructions None needed. Anesthesia/Patient Condition Patient is doing well, no complaints, stable vital signs, no apparent adverse anesthesia problems. No complications reported per nursing. [place] [facility] [place] Yes GO FRAZIER CRNA Feb 17, 2021 09:32
[2021-02-17 09:46] VITALS: BP 110/55
[2021-02-17] MEDS: DOCUSATE SODIUM 100 MG (COLACE) CAP PO SCH (09:48)
== END 2021-02-17 18:45 | disposition home or self-care (01) | DRG 807 ==
LOC: LDRP 19:25
PROVIDERS: ADMIT Obstetrics & Gynecology; ATTEND Obstetrics & Gynecology
PROC: 10D07Z6 Extraction of Products of Conception, Vacuum, Via Natural or Artificial Opening (ICD-10-PCS; principal; 2021-02-16)
PROC: 10907ZC Drainage of Amniotic Fluid, Therapeutic from Products of Conception, Via Natural or Artificial Opening (ICD-10-PCS; 2021-02-16)
PROC: 0HQ9XZZ Repair Perineum Skin, External Approach (ICD-10-PCS; 2021-02-16)
PROC: 0UQMXZZ Repair Vulva, External Approach (ICD-10-PCS; 2021-02-16)
DX: O70.0 First degree perineal laceration during delivery (principal); Z37.0 Single live birth; Z3A.37 37 weeks gestation of pregnancy; O71.82 Other specified trauma to perineum and vulva
CPT/HCPCS: 36415; 83033; 85025; 99212

== ENCOUNTER 2022-06-08 09:55 | Outpatient (CLI) | payer OTHER ==
[~2022-06-08] VITALS: Ht 155 cm; Wt 63.0 kg
[~2022-06-08 09:55] MED LIST changes: +ACET-93 PO; +DOCU100C37 PO; +FERR325T24 PO; +IBUP-844 PO
[2022-06-08 10:26] VITALS: BP 103/58
[2022-06-08 10:42] LABS: BILIRUBIN,URINE NEGATIVE (NEGATIVE); CLARITY,URINE CLEAR; COLOR,URINE YELLOW; GLUCOSE, URINE (UA) NEGATIVE (NEGATIVE); KETONES,URINE NEGATIVE (NEGATIVE); LEUKOCYTE ESTERASE ,URINE 2+ (NEGATIVE); NITRITE,URINE NEGATIVE (NEGATIVE); PH,URINE 7.5 (5-9); PROTEIN,URINE NEGATIVE (NEGATIVE)
[2022-06-08 10:57] LABS: AMORPHOUS SEDIMENT,UR LARGE AMOR PHOSPHATE /LPF; BACTERIA,URINE LARGE /HPF
--- NOTE | 2022-06-08 11:43 | Diagnostic Imaging Report ---
Exam: Ultrasound OB limited. Date: June 08, 2022. Indication: 22-year-old female, vaginal bleeding. Comparison: October 17, 2020. Findings: The cervical length is measured at 3.0 cm. The placenta is posterior without demonstrated previa. There is a twin living intrauterine . Fetus A is in cephalic presentation. heart rate of fetus A is 155 bpm. Baby B is in transverse presentation and has a heart rate of 161 bpm. There is a normal amniotic fluid index specifically measuring 17.1. There is no dedicated survey. There is no demonstrated retroplacental fluid collection. The maternal ovaries are not well demonstrated. Impression: 1. Twin living intrauterine . 2. No ultrasound evidence of placental abruption. 3. Normal amniotic fluid index. Dictated by: Dictated on workstation # [id number]
--- NOTE | 2022-06-09 09:57 | Physician Query-Final Dx ---
Clinic Account Progress/Dx Physician Query: Please give diagnosis Please include # weeks gestation Date of Service Jun 08, 2022 at 09:55 MENDELMarJun 09, 2022 09:57
== END 2022-06-08 12:38 | disposition home or self-care (01) ==
LOC: LDRP 09:55 → WSo 09:55
PROVIDERS: ATTEND Family Medicine
DX: O36.8120 Decreased fetal movements, second trimester, not applicable or unspecified (principal); Z3A.22 22 weeks gestation of pregnancy
CPT/HCPCS: 76815; 81000; 87088; 99213

== ENCOUNTER 2022-07-21 18:26 | Outpatient (CLI) | payer OTHER ==
[~2022-07-21] VITALS: Ht 154.9 cm; Wt 67.5 kg
[2022-07-21 18:30] VITALS: BP 116/62
[2022-07-21] MEDS ORDERED: BETAMETHASONE ACE/NA PHOS 6 MG/ML (CELESTONE SOLUSPAN) IM SCH (18:30)
[2022-07-21 18:40] VITALS: BP 115/63
[2022-07-21] MEDS ORDERED: NS IV 500 ML 500 ML IV SCH (18:45)
[2022-07-21 18:50] VITALS: BP 115/63
[2022-07-21 19:24] LABS: BILIRUBIN,URINE NEGATIVE (NEGATIVE); CLARITY,URINE SL CLOUDY; COLOR,URINE YELLOW; GLUCOSE, URINE (UA) NEGATIVE (NEGATIVE); KETONES,URINE NEGATIVE (NEGATIVE); LEUKOCYTE ESTERASE ,URINE NEGATIVE (NEGATIVE); NITRITE,URINE NEGATIVE (NEGATIVE); PH,URINE 6.5 (5-9); PROTEIN,URINE NEGATIVE (NEGATIVE)
[2022-07-21] MEDS ORDERED: D5 LR IV SOLUTION 1,000 ML IV ONE (19:37)
[2022-07-21 19:44] LABS: BACTERIA,URINE TRACE /HPF; SQUAMOUS EPITHELIAL CELL,UR 0-2 /HPF; WBC,URINE RARE /HPF
[2022-07-21] MEDS ORDERED: D5 LR IV SOLUTION 1,000 ML IV SCH (19:45)
[2022-07-21] MEDS ORDERED: TERBUTALINE INJ 1 MG/ML (BRETHINE) AMP ONE (19:57)
[2022-07-21] MEDS ORDERED: TERBUTALINE INJ 1 MG/ML (BRETHINE) AMP SC ONE (20:00)
[2022-07-21] MEDS ORDERED: NS IV 500 ML 500 ML IV ONE (20:00)
--- NOTE | 2022-07-22 08:53 | Physician Query-Final Dx ---
MENDEL,07/22/22 0853: Clinic Account Progress/Dx Physician Query: Please give diagnosis Please include # weeks gestation Date of Service Jul 21, 2022 at 18:26 MADELINE ROBERTSON DO 07/22/22 1012: Clinic Account Progress/Dx DIAGNOSIS: Diagnosis 31 week di/di twins Irregular contractions MENDEL,MarJul 22, 2022 08:53 MADELINE ROBERTSON DO Jul 22, 2022 10:12
== END 2022-07-21 21:10 | disposition home or self-care (01) ==
LOC: WSo 18:26 → LDRP 18:27 → WSo 21:10
PROVIDERS: ATTEND Obstetrics & Gynecology
DX: O62.9 Abnormality of forces of labor, unspecified (principal); Z3A.31 31 weeks gestation of pregnancy
CPT/HCPCS: 81000; 87088; 96360; 96361; 96372; 99213

== ENCOUNTER 2022-07-22 12:08 | Inpatient (IN) | payer OTHER, MEDICAID ==
[~2022-07-22] VITALS: Ht 154.9 cm; Wt 68.0 kg
[2022-07-22] MEDS ORDERED: D5 LR IV SOLUTION 1,000 ML IV SCH ×2 (12:30→12:45)
[2022-07-22 12:35] VITALS: BP 109/58
[2022-07-22] MEDS ORDERED: MAGNESIUM SULFATE DRIP 500 ML IV ONE (12:41)
[2022-07-22] MEDS ORDERED: D5 LR IV SOLUTION 1,000 ML IV ONE (12:41)
[2022-07-22] MEDS ORDERED: MAGNESIUM 4 GM/100 ML IVPB 100 ML IV ONE (12:41)
[2022-07-22] MEDS ORDERED: MAGNESIUM 4 GM/100 ML IVPB 100 ML IV SCH (12:45)
[2022-07-22] MEDS ORDERED: CALCIUM GLUC. 10% 4.65 MEQ/10 ML VIAL IV SCH (12:45)
[2022-07-22 13:15] VITALS: BP 102/57
[2022-07-22] MEDS ORDERED: MAGNESIUM SULFATE DRIP 500 ML IV SCH (13:15)
--- NOTE | 2022-07-22 13:23 | History & Physical-OB ---
OB - Chief Complaint & HPI Date/Time Date of Admission: Date of Admission: Jul 22, 2022 at 12:25 Date seen by a Provider: Jul 22, 2022 Time Seen by a Provider: 13:19 Chief Complaint/History OB-Reason for Admission/Chief: Onset of Labor Hx : 3 Hx Para: 1 Expected Date of Delivery: Sep 28, 2022 Gestational Age in Weeks: 30 Other reason for admission: Patient returns from last night after coming in for contractions. Reports they are worse this AM. Denies loss of fluid or vaginal bleeding. Was 1 cm last night Admission Nurse Assessment Rev: Yes Allergies and Home Medications Allergies Coded Allergies: No Known Drug Allergies (Unverified , 02/07/21) Patient Home Medication List Home Medication List Reviewed: Yes Vit/Iron Fumarate/FA ( Tablet) 1 Each Tablet, 1 EACH PO DAILY, (Reported) Entered as Reported by: CIERA COREAS on 10/30/20 1230 Discontinued Medications Acetaminophen (Acetaminophen) 500 Mg Tablet, 1,000 MG PO Q6HR PRN for PAIN-MILD (1-4) Discontinued Reason: No Longer Taking Prescribed by: RUBY ORR on 02/17/21906 Ferrous Sulfate (Ferosul) 325 Mg Tablet, 325 MG PO DAILY Discontinued Reason: No Longer Taking Prescribed by: RUBY ORR on 02/17/21 09 OB - History Hx of Present Care: Yes Ultrasounds: Normal mid trimester US Obstetrical Complications: None Medical Complications: None Obstetrical History Hx : 3 Hx Para: 1 Hx Total # of Abortions (Spona: 1 Patient Past Medical History Hx of anxiety Social History/Family History Alcohol Use: Denies Use Recreational Drug Use: No 2nd Hand Smoke Exposure: No OB - Admission Exam Physical Exam Vitals: Vital Signs 07/22/22 12:35 Temp 37.0 Pulse 99 Resp 20 B/P (MAP) 109/58 Pulse Ox 100 O2 Delivery Room Air HEENT: NCAT Heart: Rhythm Normal Lungs: Clear Abdomen: Gravid Extremities: Normal Reflexes: Normal Cervical Dilatation: 3cm Effacement: 75% Station: -3 Membranes: Intact Heart Rate: 130's Accelerations: Accelerations Present Decelerations: No Decelerations Short Term Variability: Present Jail Variability: Average (6-25) Contractions on Admission: >10 Minutes Apart Intensity: Mild OB - Assessment/Plan/Diagnosis Assessment Assessment: labor Admission Dx 22 yo @ 30.2 di/di twins labor GBS unknown Admission Status: Inpatient Order (span 2 midnights) Reason for Inpatient Admission: labor Plan Plan: Other Other Plan Spoke with Martín/ Dr. Clarke is taking transfer due to PTL. Starting patient on MgSO4 infusion. BMZ second dose is due at 1730. MADELINE ROBERTSON DO Jul 22, 2022 13:23
[2022-07-22 13:30] VITALS: BP 107/54
[2022-07-22 13:42] VITALS: BP 104/56
[2022-07-22 13:55] VITALS: BP 108/59
== END 2022-07-22 14:10 | disposition short-term general hospital (02) | DRG 831 ==
LOC: WSo 12:08 → LDRP 12:08 → WSo 12:24 → LDRP 12:25
PROVIDERS: ADMIT Obstetrics & Gynecology; ATTEND Obstetrics & Gynecology
DX: O30.043 Twin pregnancy, dichorionic/diamniotic, third trimester (principal); O60.03 Preterm labor without delivery, third trimester; Z3A.30 30 weeks gestation of pregnancy
CPT/HCPCS: 99213